=== PATIENT | female | born 1985 | race Caucasian/White ===

== ENCOUNTER 2017-02-18 13:20 | Emergency (ER) | payer BC ==
[2017-02-18 14:17] VITALS: BP 109/71
--- NOTE | 2017-02-18 15:11 | UC ---
Throat Pain/Nasal Daniel HPI - HPI Summary HPI Summary: THREE DAYS OF FEVER, SORE THROAT, RIGHT EAR PAIN. NO ABDOMINAL PAIN. NO RASH. - History of Current Complaint Chief Complaint: UCGeneralIllness Stated Complaint: SORE THROAT Time Seen by Provider: 02/18/17 14:19 Hx Obtained From: Patient Hx Last Menstrual Period: "I don't know. I'm not ." Onset/Duration: Gradual Onset, Lasting Days Severity: Moderate Pain Intensity: 6 Pain Scale Used: 0-10 Numeric Cough: None Associated Signs & Symptoms: Positive: Hoarseness, Fever - Epiglottits Risk Factors Epiglottis Risk Factors: Negative - Allergies/Home Medications Allergies/Adverse Reactions: Allergies Allergy/AdvReac Type Severity Reaction Status Date / Time Clavulanic Acid Allergy Hives Verified 02/18/17 14:12 [From Augmentin] Home Medications: Home Medications Cholecalciferol CAP/TAB(NF) [Vitamin D3 CAP/TAB (NF)] 5,000 unit PO DAILY [History Confirmed 02/18/17] Cyanocobalamin TAB* [Vitamin B12 TAB*] 500 mcg PO DAILY 02/18/17 [History Confirmed 02/18/17] Multiple Vitamins W/ Minerals [Emergen-C Immune Plus] 1 ad PO SEE INSTRUCTIONS PRN 02/18/17 [History Confirmed 02/18/17] PMH/Surg Hx/FS Hx/Imm Hx Previously Healthy: Yes - Surgical History Surgical History: None - Family History Known Family History: Positive: None - Social History Occupation: Employed Full-time Lives: With Family Alcohol Use: None Substance Use Type: None Smoking Status (MU): Never Smoked Tobacco - Immunization History Most Recent Influenza Vaccination: Not the Season Review of Systems Constitutional: Fever Skin: Negative Eyes: Negative ENT: Sore Throat, Ear Ache Respiratory: Negative Cardiovascular: Negative Gastrointestinal: Negative Genitourinary: Negative Motor: Negative Neurovascular: Negative Musculoskeletal: Negative Neurological: Negative Psychological: Negative Is Patient Immunocompromised?: No All Other Systems Reviewed And Are Negative: Yes Physical Exam Triage Information Reviewed: Yes Appearance: No Pain Distress, Well-Nourished, Ill-Appearing - MILDLY Vital Signs: Initial Vital Signs Temp 99.6 F 02/18/17 14:10 Pulse 94 02/18/17 14:10 Resp 16 02/18/17 14:10 BP 109/71 02/18/17 14:10 Pulse Ox 99 02/18/17 14:10 Vital Signs Reviewed: Yes Eye Exam: Normal ENT: Positive: Hearing grossly normal, Pharyngeal erythema, TMs normal Dental Exam: Normal Neck exam: Normal Neck: Positive: Supple, Nontender, No Lymphadenopathy Respiratory Exam: Normal Respiratory: Positive: Chest non-tender, Lungs clear, Normal breath sounds, No respiratory distress, No accessory muscle use Cardiovascular Exam: Normal Cardiovascular: Positive: RRR, No Murmur, Pulses Normal, Brisk Capillary Refill Abdominal Exam: Normal Abdomen Description: Positive: Nontender, No Organomegaly, Soft Musculoskeletal Exam: Normal Musculoskeletal: Positive: Strength Intact, ROM Intact Neurological Exam: Normal Psychological Exam: Normal Skin Exam: Normal Throat Pain/Nasal Course/Dx - Differential Dx/Diagnosis Differential Diagnosis/HQI/PQRI: Sinusitis, Tonsillitis, URI Provider Diagnoses: PHARYNGITIS Discharge - Discharge Plan Condition: Stable Disposition: HOME Patient Education Materials: Pharyngitis (ED), Viral Syndrome (ED) Forms: *Work Release Referrals: Mimi Green MD [Primary Care Provider] -
== END 2017-02-18 14:55 | disposition home or self-care (01) ==
LOC: UCCORT 13:20
DX: J02.9 Acute pharyngitis, unspecified (principal); R50.9 Fever, unspecified; H92.01 Otalgia, right ear; Z88.1 Allergy status to other antibiotic agents
CPT/HCPCS: 87651; 99211; G0463

== ENCOUNTER 2017-05-11 12:24 | Emergency (ER) | payer BC ==
[2017-05-11 13:40] VITALS: BP 119/83
--- NOTE | 2017-05-11 13:58 | UC ---
UC General HPI - HPI Summary HPI Summary: pt c/o sudden onset REINOSO, sore throat, fatigue, nausea, cough and bodyaches. no cp , sob, v/d/dysuria. - History of Current Complaint Chief Complaint: UCGeneralIllness Stated Complaint: HEADACHE, ST, COUGH, CONGESTION Time Seen by Provider: 05/11/17 13:47 Hx Obtained From: Patient Hx Last Menstrual Period: 05/10/17 Onset/Duration: Sudden Onset Timing: Constant Pain Intensity: 0 Associated Signs & Symptoms: Positive: Cough, Diaphoresis, Fever, Headache, Nausea. Negative: Chest Pain, Dysuria, SOB, Vomiting - Allergy/Home Medications Allergies/Adverse Reactions: Allergies Allergy/AdvReac Type Severity Reaction Status Date / Time MS Clavulanic Acid Allergy Hives Verified 05/11/17 13:40 [From Augmentin] PMH/Surg Hx/FS Hx/Imm Hx - Additional Past Medical History Additional PMH: HEALTHY Previously Healthy: Yes - Surgical History Surgical History: None - Family History Known Family History: Positive: None - Social History Occupation: Employed Full-time Lives: With Family Alcohol Use: None Substance Use Type: None Smoking Status (MU): Never Smoked Tobacco - Immunization History Most Recent Influenza Vaccination: Not the Season Vaccination Up to Date: Yes Review of Systems Constitutional: Fever, Chills, Fatigue Skin: Negative Eyes: Negative ENT: Sore Throat Respiratory: Cough Cardiovascular: Negative Gastrointestinal: Nausea Genitourinary: Negative Motor: Negative Neurovascular: Negative Musculoskeletal: Negative Neurological: Negative Psychological: Negative Is Patient Immunocompromised?: No All Other Systems Reviewed And Are Negative: Yes Physical Exam Triage Information Reviewed: Yes Appearance: Well-Appearing Vital Signs: Initial Vital Signs Temp 99.9 F 05/11/17 13:35 Pulse 117 05/11/17 13:35 Resp 20 05/11/17 13:35 BP 119/83 05/11/17 13:35 Pulse Ox 99 05/11/17 13:35 Vital Signs Reviewed: Yes Eyes: Positive: Conjunctiva Clear ENT: Positive: Pharyngeal erythema, TMs normal, Uvula midline. Negative: Nasal congestion, Nasal drainage, Tonsillar swelling, Tonsillar exudate, Trismus, Muffled voice, Hoarse voice, Sinus tenderness Neck: Positive: Supple, Nontender, Enlarged Nodes @ - peritonsilar Respiratory: Positive: Lungs clear, Normal breath sounds, No respiratory distress Cardiovascular: Positive: No Murmur, Tachycardia - 100 Abdomen Description: Positive: Nontender, No Organomegaly, Soft Bowel Sounds: Positive: Present Musculoskeletal: Positive: No Edema Neurological: Positive: Alert Psychological: Positive: Age Appropriate Behavior Skin Exam: Normal Diagnostics - Laboratory Diagnostic Studies Completed/Ordered: rapid strep=neg Course/Dx - Course Course Of Treatment: non toxic, not hypoxic. will r/o strep throat to ensure no indication for antibiotics. strep=negative, will tx for DARRYN as s/s's c/w influenza in community - Differential Dx - Multi-Symptom Provider Diagnoses: Influenza like illness Discharge - Discharge Plan Condition: Stable Disposition: HOME Prescriptions: Oseltamivir Phosphate [Tamiflu] 75 mg PO BID 5 Days #10 capsule Patient Education Materials: Influenza (ED) Forms: *Work Release Referrals: Mimi Green MD [Primary Care Provider] - 5 Days
== END 2017-05-11 14:30 | disposition home or self-care (01) ==
LOC: UCCORT 12:24
DX: J11.1 Influenza due to unidentified influenza virus with other respiratory manifestations (principal)
CPT/HCPCS: 87651; 99212; G0463

== ENCOUNTER 2017-11-26 16:51 | Emergency (ER) | payer BC ==
[2017-11-26 17:37] VITALS: BP 120/65
--- NOTE | 2017-11-26 17:47 | UC ---
UC General HPI - HPI Summary HPI Summary: Patient is complaining of frequency, urgency and burning with urination for about a week. She states she is pretty sure dizzy urinary tract infection she' s had them before and this feels the same. She has self treated with a AZO. She denies any associated abdominal pain, fever, flank pain and risk or concern for pelvic infection - History of Current Complaint Chief Complaint: UCGU Stated Complaint: URINARY Time Seen by Provider: 11/26/17 17:41 Hx Obtained From: Patient Hx Last Menstrual Period: 11/16/17 Onset/Duration: Gradual Onset Timing: Constant Pain Intensity: 4 Alleviating: Nothing Associated Signs & Symptoms: Positive: Dysuria. Negative: Abdominal Pain, Fever - Allergy/Home Medications Allergies/Adverse Reactions: Allergies Allergy/AdvReac Type Severity Reaction Status Date / Time amoxicillin [From Augmentin] Allergy Hives Verified 11/26/17 17:30 clavulanic acid Allergy Hives Verified 11/26/17 17:30 [From Augmentin] PMH/Surg Hx/FS Hx/Imm Hx - Additional Past Medical History Additional PMH: uti - Surgical History Surgical History: None - Family History Known Family History: Positive: None - Social History Occupation: Employed Full-time Lives: With Family Alcohol Use: Occasionally Substance Use Type: None Smoking Status (MU): Never Smoked Tobacco - Immunization History Most Recent Influenza Vaccination: Not the Season Vaccination Up to Date: Yes Review of Systems Constitutional: Negative Skin: Negative Eyes: Negative ENT: Negative Respiratory: Negative Cardiovascular: Negative Gastrointestinal: Negative Genitourinary: Dysuria, Frequency, Urgency Motor: Negative Neurovascular: Negative Musculoskeletal: Negative Neurological: Negative Psychological: Negative Is Patient Immunocompromised?: No All Other Systems Reviewed And Are Negative: Yes Physical Exam Triage Information Reviewed: Yes Appearance: Well-Appearing Vital Signs: Initial Vital Signs Temp 98.1 F 11/26/17 17:30 Pulse 80 11/26/17 17:30 Resp 14 11/26/17 17:30 BP 120/65 11/26/17 17:30 Pulse Ox 100 11/26/17 17:30 Vital Signs Reviewed: Yes Eyes: Positive: Conjunctiva Clear ENT: Positive: Normal ENT inspection Neck: Positive: Supple, Nontender, No Lymphadenopathy Respiratory: Positive: Lungs clear, Normal breath sounds Cardiovascular: Positive: RRR, No Murmur Abdomen Description: Positive: Nontender, No Organomegaly, Soft. Negative: CVA Tenderness (R), CVA Tenderness (L), Distended, Guarding Bowel Sounds: Positive: Present Musculoskeletal: Positive: ROM Intact Neurological: Positive: Alert Psychological: Positive: Age Appropriate Behavior Skin Exam: Normal Diagnostics - Laboratory Diagnostic Studies Completed/Ordered: No UA due to Azo treatment. Urine culture pending. Course/Dx - Course Course Of Treatment: Nontoxic. No acute abdomen. Unable to check UA due to Azo treatment prior to arrival. Urine culture pending. We will treat presumptively for urinary tract infection. - Differential Dx - Multi-Symptom Provider Diagnoses: Dysuria Discharge - Sign-Out/Discharge Documenting (check all that apply): Patient Departure All imaging exams completed and their final reports reviewed: No Studies - Discharge Plan Condition: Stable Disposition: HOME Prescriptions: Nitrofurantoin Monohyd/M-Cryst [Macrobid 100 mg Capsule] 100 mg PO BID 5 Days # 10 cap Patient Education Materials: Dysuria (ED) Referrals: Mimi Green MD [Primary Care Provider] - 7 Days - Billing Disposition and Condition Condition: STABLE Disposition: Home
== END 2017-11-26 17:52 | disposition home or self-care (01) ==
LOC: UCCORT 16:51
DX: R30.0 Dysuria (principal); Z88.0 Allergy status to penicillin; Z88.8 Allergy status to other drugs, medicaments and biological substances; Z87.440 Personal history of urinary (tract) infections
CPT/HCPCS: 87077; 87086; 87186; 99212; G0463

== ENCOUNTER 2017-11-30 16:06 | Emergency (ER) | payer BC, OTHER ==
[2017-11-30 17:08] VITALS: BP 104/66
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
== END 2017-11-30 17:30 | disposition home or self-care (01) ==
LOC: UCCORT 16:06
DX: S50.811A Abrasion of right forearm, initial encounter (principal); W50.3XXA Accidental bite by another person, initial encounter; Y92.9 Unspecified place or not applicable; Z88.3 Allergy status to other anti-infective agents
CPT/HCPCS: 99211; G0463